=== PATIENT | female | born 1990 | race American Indian/Alaskan Native ===

== ENCOUNTER 2019-09-15 23:38 | Emergency (ER) | payer SELFPAY ==
[2019-09-16 00:27] LABS: Basophils % (Auto) 0.3 % (0.0-1.8); Eosinophils # (Auto) 0.1 K/mm3 (0.0-0.4); Eosinophils % (Auto) 0.8 % (0.0-4.3); Hematocrit 36.1 % (30.3-42.9); Hemoglobin 12.2 gm/dl (10.1-14.3); Lymphocytes % (Auto) 41.8 % (13.4-35.0); Mean Corpuscular HGB Conc 34 % (30-34); Mean Corpuscular Volume 79 fl (79-97); Monocytes # (Auto) 0.5 K/mm3 (0.0-0.8); Monocytes % (Auto) 5.6 % (0.0-7.3); Platelet Count 249 K/mm3 (140-440); Red Blood Count 4.57 M/mm3 (3.65-5.03); Red Cell Distribution Width 16.3 % (13.2-15.2)
[2019-09-16 01:23] LABS: Alanine Aminotransferase 12 units/L (7-56); Albumin 4.1 g/dL (3.9-5); BUN/Creatinine Ratio 22; Blood Urea Nitrogen 13 mg/dL (7-17); Calcium 9.9 mg/dL (8.4-10.2); Hemolysis Index 22
[2019-09-16 01:45] VITALS: BP 117/70
[2019-09-16 02:19] LABS: Bilirubin,Urine NEG (Negative); Blood,Urine NEG (Negative); Color,Urine Yellow (Yellow); Mucus,Urine 3+ /HPF; Protein,Urine <15 mg/dL mg/dL (Negative); RBC,Urine < 1.0 /HPF (0.0-6.0)
== END 2019-09-16 03:03 | disposition left against medical advice (07) ==
LOC: ED 23:38
DX: R10.9 Unspecified abdominal pain (principal); Z53.21 Procedure and treatment not carried out due to patient leaving prior to being seen by health care provider
CPT/HCPCS: 36415; 80053; 81001; 84703; 85025

== ENCOUNTER 2019-10-12 18:07 | Emergency (ER) | payer SELFPAY ==
[2019-10-12 19:02] LABS: Basophils % (Auto) 0.3 % (0.0-1.8); Eosinophils % (Auto) 0.5 % (0.0-4.3); Hematocrit 31.7 % (30.3-42.9); Hemoglobin 10.5 gm/dl (10.1-14.3); Lymphocytes # (Auto) 2.4 K/mm3 (1.2-5.4); Mean Corpuscular HGB Conc 33 % (30-34); Mean Corpuscular Volume 80 fl (79-97); Monocytes # (Auto) 0.7 K/mm3 (0.0-0.8); Monocytes % (Auto) 9.2 % (0.0-7.3); Platelet Count 215 K/mm3 (140-440); Red Blood Count 3.95 M/mm3 (3.65-5.03); Red Cell Distribution Width 15.9 % (13.2-15.2)
[2019-10-12] MEDS ORDERED: KETOROLAC 30 MG/1 ML INJ IV ONE (19:04)
[2019-10-12] MEDS ORDERED: SODIUM CHLORIDE 0.9% 1000 ML 1,000 ML IV ONE (19:04)
--- NOTE | 2019-10-12 19:12 | Emergency Department Report ---
ED Female HPI - General Chief complaint: Vaginal Bleeding Stated complaint: VAGINAL BLEEDING AND PAIN Time Seen by Provider: 10/12/19 18:33 Source: patient, EMS Mode of arrival: Stretcher Limitations: No Limitations - History of Present Illness Initial comments: 28-year-old female with a past medical history of anemia and cervical cancer in 2018, x3 treated with LEEP and removal of part of her cervix presents to the hospital complaining of heavy vaginal bleeding for the past 5 days. 2 weeks ago patient had a elective/surgical at approximately 7 weeks gestation. She started have some spotting but the last days bleeding has been heavy with large clots. Patient is unable to quantify bleeding at this time. She has had a moderate suprapubic cramps worse on the right side. She complains of feeling lightheaded with generalized weakness. History of blood transfusion in the past.. 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 10/12/19 Unknown Rx 324 MG] Ibuprofen [Motrin] 800 mg PO Q8HR PRN #30 tablet 10/12/19 Unknown Rx traMADoL [Ultram 50 MG tab] 50 mg PO Q6HR PRN #20 tablet 10/12/19 Unknown Rx Allergies Allergy/AdvReac Type Severity Reaction Status Date / Time No Known Allergies Allergy Verified 01/14/16 23:47 ED Review of Systems ROS: Stated complaint: VAGINAL BLEEDING AND PAIN Other details as noted in HPI Comment: All other systems reviewed and negative ED Past Medical Hx - Past Medical History Previous Medical History?: Yes Hx of Cancer: Yes (Cervical CA 2018) Additional medical history: Anemia - Surgical History Past Surgical History?: Yes Additional Surgical History: x 3, LEEP, removal of part of cervix - Social History Smoking Status: Never Smoker Substance Use Type: None - Medications Home Medications: Home Medications Medication Instructions Recorded Confirmed Last Taken Type Tobramycin 0.3% [Tobrex] 2 drop OU Q4HR #1 bottle 01/15/16 Unknown Rx Ferrous Sulfate [Ferrous Sulfate 324 mg PO DAILY #20 tablet. 10/12/19 Unknown Rx 324 MG] Ibuprofen [Motrin] 800 mg PO Q8HR PRN #30 tablet 10/12/19 Unknown Rx traMADoL [Ultram 50 MG tab] 50 mg PO Q6HR PRN #20 tablet 10/12/19 Unknown Rx ED Physical Exam - General Limitations: No Limitations - Other Other exam information: General: No acute distress Head: Atraumatic Eyes: normal appearance ENT: Moist mucous membranes Neck: Normal appearance, no midline tenderness Chest: Clear to auscultation bilaterally CV: Regular rate and rhythm Abdomen: Soft, normal bowel sounds, suprapubic tenderness, nondistended, no rebound or guarding Back: Normal inspection Extremity: Normal inspection, full range of motion Neuro: Alert O x 3, no facial asymmetry, speech clear, no gross motor sensory deficit. however, generalized weakness and needing to sit up in the bed Psych: Appropriate behavior Skin: No rash ED Course Vital Signs 10/12/19 10/12/19 18:36 22:27 Temperature 98.5 F 98.7 F Pulse Rate 74 67 Respiratory 12 16 Rate Blood Pressure 112/67 120/71 [Left] O2 Sat by Pulse 100 98 Oximetry - Consultations Consultation #1: 10/12/19 21:[address] 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 Advises Cytotec 600 mcg per vagina and follow-up in office on Monday ED Medical Decision Making - Lab Data Result diagrams: 10/12/19 18:42 Lab Results 10/12/19 10/12/19 10/12/19 Range/Units 18:42 18:49 Unknown WBC 7.8 (4.5-11.0) K/mm3 RBC 3.95 (3.65-5.03) M/mm3 Hgb 10.5 (10.1-14.3) gm/dl Hct 31.7 (30.3-42.9) % MCV 80 (79-97) fl MCH 27 L (28-32) pg MCHC 33 (30-34) % RDW 15.9 H (13.2-15.2) % Plt Count 215 (140-440) K/mm3 Lymph % (Auto) 31.0 (13.4-35.0) % Pepin % (Auto) 9.2 H (0.0-7.3) % Eos % (Auto) 0.5 (0.0-4.3) % Baso % (Auto) 0.3 (0.0-1.8) % Lymph # 2.4 (1.2-5.4) K/mm3 Pepin # 0.7 (0.0-0.8) K/mm3 Eos # 0.0 (0.0-0.4) K/mm3 Baso # 0.0 (0.0-0.1) K/mm3 Seg Neutrophils % 59.0 (40.0-70.0) % Seg Neutrophils # 4.6 (1.8-7.7) K/mm3 HCG, Quant 7468 H (0-4) mIU/mL Blood Type O POSITIVE Antibody Screen Negative - Radiology Data Radiology results: report reviewed Pelvic ultrasound INDICATION: Heavy bleeding 2 weeks status post elective Transabdominal and transvaginal imaging is performed. FINDINGS: The uterus measures 10.6 cm in length. There is heterogeneous structure in the endometrial cavity which measures approximately 13 mm. This could represent a gestational sac. This may represent retained products of gestation. This may represent clot within the uterine cavity. Neither ovary is visualized. No pole or yolk sac is identified. IMPRESSION: There is heterogeneous material wit hin the uterine cavity which could represent retained products of gestation. This could represent clot within the endometrial cavity. No discrete pole or yolk sac is seen. - Medical Decision Making Case discussed with [employer]INE[employer]. Patient given Cytotec in the ED x1 with encouraged follow-up on Monday. No signs of cardio pulmonary instability or significant a nemia requiring blood transfusion. Patient provided Toradol and morphine with Zofran for pain in the ED. No distress at discharge - Differential Diagnosis Menorrhagia, retained products, anemia Critical Care Time: No Critical care attestation.: If time is entered above; I have spent that time in minutes in the direct care of this critically ill patient, excluding procedure time. ED Disposition Clinical Impression: Status post elective , Menorrhagia Disposition: TO HOME OR SELFCARE Is pt being admited?: No Does the pt Need Aspirin: No Condition: Stable Instructions: Dilation and Curettage (ED), Menorrhagia (ED) Additional Instructions: Take the medication as prescribed. Follow-up with your doctor or doctor/clinic provided. Return if symptoms worsen as indicated by your discharge instructions. Prescriptions: Ferrous Sulfate [Ferrous Sulfate 324 MG] 324 mg PO DAILY #20 tablet. Ibuprofen [Motrin] 800 mg PO Q8HR PRN #30 tablet PRN Reason: Pain, Moderate (4-6) traMADoL [Ultram 50 MG tab] 50 mg PO Q6HR PRN #20 tablet PRN Reason: Pain Referrals: PRIMARY CARE, [Primary Care Provider] - 3-5 Days YARELI DIAZ MD [Staff Physician] - 10/14/19 (assistant clinical director follow in office monday. Call early in morning to inform them you were seen in the ER and follow was recommended by Dr Diaz for Monday10/14/19 in the office. ) Forms: Work/School Release Form(ED) Time of Disposition: 22:58
--- NOTE | 2019-10-12 20:33 | Ultrasound Report ---
Pelvic ultrasound INDICATION: Heavy bleeding 2 weeks status post elective Transabdominal and transvaginal imaging is performed. FINDINGS: The uterus measures 10.6 cm in length. There is heterogeneous structure in the endometrial cavity which measures approximately 13 mm. This could represent a gestational sac. This may represent retained products of gestation. This may represent clot within the uterine cavity. Neither ovary is visualized. No pole or yolk sac is identified. IMPRESSION: There is heterogeneous material within the uterine cavity which could represent retained products of gestation. This could represent clot within the endometrial cavity. No discrete pole or yolk sa c is seen. Signer Name: Lenin Lara MD Signed: 10/12/2019 8:29 PM Workstation Name: [id number]
--- NOTE | 2019-10-12 20:33 | Ultrasound Report ---
Pelvic ultrasound INDICATION: Heavy bleeding 2 weeks status post elective FINDINGS: The uterus measures 10.6 cm in length. There is heterogeneous structure in the endometrial cavity which measures approximately 13 mm. This could represent a gestational sac. This may represent retained products of gestation. This may represent clot within the uterine cavity. Neither ovary is visualized. No pole or yolk sac is identified. IMPRESSION: There is heterogeneous material within the uterine cavity which could represent retained products of gestation. This could represent clot within the endometrial cavity. No discrete pole or yolk sa c is seen. Signer Name: Lenin Lara MD Signed: 10/12/2019 8:28 PM Workstation Name: [id number]
[2019-10-12] MEDS ORDERED: ONDANSETRON 4 MG/2 ML INJ IV ONE (21:11)
[2019-10-12] MEDS ORDERED: MORPHINE 4 MG/1 ML INJ IV ONE (21:11)
[2019-10-12] MEDS ORDERED: miSOPROStol 200 MCG TAB VG ONE (21:20)
[2019-10-12 22:27] VITALS: BP 120/71
== END 2019-10-13 00:05 | disposition home or self-care (01) ==
LOC: ED 18:07
DX: N92.0 Excessive and frequent menstruation with regular cycle (principal); Z33.2 Encounter for elective termination of pregnancy; Z3A.01 Less than 8 weeks gestation of pregnancy; Z98.890 Other specified postprocedural states; Z79.1 Long term (current) use of non-steroidal anti-inflammatories (NSAID); Z79.899 Other long term (current) drug therapy
CPT/HCPCS: 36415; 76801; 76817; 84702; 85025; 86850; 86900; 86901; 96361; 96374; 96375; 99285; J1885; J2270; J2405; J7030